=== PATIENT | female | born 1960 | race Caucasian/White ===

== ENCOUNTER 2023-06-03 08:48 | Outpatient (CLI) | payer MEDICARE, MEDICAID ==
[~2023-06-03 08:48] MED LIST: AMI200T PO; BIMA2.5D EACHEYE; BUPR-72 PO; CLON0.3T PO; CLOP75TA34 PO; DEXL60CA6 PO; DOXA2TAB2 PO; FEXO-236 PO; FLUT12AE21 INH; FOLI1TAB27 PO; FOSI40TA71 PO; FURO80TA87 PO; GABA300C PO; HYDR-3972 PO; HYDR100T27 PO; INSU100I31 SQ; INSU100V13 SQ; LABE200T8 PO; LACT1CAP65 PO; LINA5TAB4 PO; NIFE90TA61 PO; ONDA4TAB12 PO; ROSU20TA73 PO; SEVE800T8 PO; VITA-268 PO
== END 2023-06-03 23:59 | disposition home or self-care (01) ==
LOC: LAB 08:48
PROVIDERS: ATTEND Nurse Practitioner Family
DX: N18.9 Chronic kidney disease, unspecified (principal); D63.1 Anemia in chronic kidney disease
CPT/HCPCS: 36415; 84132